=== PATIENT | female | born 1965 | race Caucasian/White ===

== ENCOUNTER → 2016-04-16 | Outpatient (CLI) | payer MEDICARE, OTHER ==
[~2016-04-16] MED LIST: ACIPHEX20 MG; ADIPEX-P37.5 M1 PO; ALPRAZOLAM PO; ALTACE PO; AMLODIPINE BESY10 MG PO; AMPHETAMINE SAL20 M1 PO; ASPIRIN EC81 M1 PO; ASPIRIN81 M2 PO; ASPIRIN81 MG PO; AVANDAMET1 TAB; BACTRIM DS TABL1 TA2 PO; BENADRYL25 M1 PO; BRILINTA90 MG PO; BYETTA10 MCG/0.0 INJ; CARISOPRODL-AS1 EACH PO; CARVEDILOL6.25 MG PO; CLOPIDOGREL BIS75 MG PO; CLOPIDOGREL75 MG PO; COREG6.25 MG PO; DIOVAN PO; DIOVAN320 MG PO; DOXYCYCLINE MO100 MG PO; DUONEB 2.5-0.5 M3 ML NEB; EPINEPHRIN0.15 MG/0. SUBQ; FENOFIBRATE145 M1 PO; GLIPIZIDE10 MG PO; GLUCOPHAGE XR500 MG PO; GLUCOPHAGE500 M1 PO; HYDROCHLOROTHIA25 MG; HYDROCODON-ACE1 EAC5 PO; K-DUR20 ME1; KLONOPIN; KLONOPIN1 M1 PO; KLONOPIN1 MG PO; LEVOTHYROXINE100 MC1 PO; LIPITOR40 MG PO; LISINOPRIL5 MG PO; LORTAB 7.5-5001 TAB PO; LORTAB 7.51 TAB 7.5/ PO; METOPROLOL SUCC25 MG PO; NORCO 10-325 TA1 TAB PO; NORCO1 TAB 10/3 PO; NORVASC10 MG PO; ONDANSETRO8 MG/UDTAB PO; ONGLYZA5 MG PO; PEPCID PO; PHENERGAN PO; PILOCARPINE HCL5 MG PO; PREDNISONE10 MG PO; PREVACID PO; PRILOSEC PO; SLEEPING MED; SOMA PO; SYNTHROID75 MCG PO; TYLENOL #3 PO; VOLTAREN75 MG PO; ZETIA PO; [UNRECOGNIZED DRUG - REMARK]
--- NOTE | ~2016-04-16 | EKG ---
PATIENT: VIKRAM YANCEY UNIT #: [id number] Ventricular Rate: 63 BPM Atrial Rate: 63 BPM P-R Interval: 150 ms QRS Duration: 70 ms Q-T Interval: 404 ms QTC Calculation(Bezet): 413 ms P [place]: -5 degrees Calculated R [place]: 8 degrees Calculated T [place]: 17 degrees Diagnosis Line: Normal sinus rhythm Diagnosis Line: Low voltage QRS Diagnosis Line: Borderline ECG Diagnosis Line: When compared with ECG of 12-JUN-2015 17:03, Diagnosis Line: Questionable change in QRS axis Diagnosis Line: T wave inversion now evident in Inferior leads Diagnosis Line: Confirmed by JILL ORR MD ([id number]) on 04/18/2016 Diagnosis Line: 5:50:00 PM INTERPRETING MD: DOMINGA LIU
[2016-04-16 07:48] LABS: HEMATOCRIT 42.9 % (35.0-45.0); HEMOGLOBIN 14.4 gm/dL (12.0-16.0); MEAN CELL VOLUME 88.8 FL (83-96); MEAN CORPUSCULAR HEMOGLOBIN 29.9 PG (28-34); MEAN CORPUSCULAR HGB CONC 33.7 g/dL (30-36); MEAN PLATELET VOLUME 8.4 FL (6.5-11.5); RED BLOOD COUNT 4.82 X10e (3.90-5.30); RED CELL DISTRIBUTION WIDTH 14.6 % (11.0-15.5); WHITE BLOOD COUNT 7.7 X10e3 (4.0-10.5)
[2016-04-16 08:05] LABS: INR 0.9; PARTIAL THROMBOPLASTIN TIME 24.2 SECONDS (23.5-31.3); PROTHROMBIN TIME (PATIENT) 9.8 SECONDS (9.6-11.5)
[2016-04-16 08:13] LABS: BLOOD UREA NITROGEN 18 mg/dL (9-23); CALCIUM SERUM 9.2 mg/dL (8.4-10.2); CARBON DIOXIDE 26 mmol/L (22-31); CHLORIDE 110 mmol/L (100-111); CREATININE SERUM 0.9 mg/dL (0.6-1.4); GLOM FILT RATE Estimated ABOVE60 mL/min (>60); GLUCOSE FASTING 118 mg/dL (70-110); POTASSIUM 4.3 mmol/L (3.5-5.1); SODIUM 142 mmol/L (135-145)
== END | disposition home or self-care (01) ==
LOC: CCVL 07:27
PROVIDERS: Internal Medicine Cardiovascular Disease
PROC: 4A023N7 Measurement of Cardiac Sampling and Pressure, Left Heart, Percutaneous Approach (ICD-10-PCS; principal; 2016-04-16)
PROC: B211YZZ Fluoroscopy of Multiple Coronary Arteries using Other Contrast (ICD-10-PCS; 2016-04-16)
PROC: B215YZZ Fluoroscopy of Left Heart using Other Contrast (ICD-10-PCS; 2016-04-16)
DX: R07.9 Chest pain, unspecified (principal); J44.9 Chronic obstructive pulmonary disease, unspecified; R06.02 Shortness of breath; F41.9 Anxiety disorder, unspecified; Z95.5 Presence of coronary angioplasty implant and graft; I25.2 Old myocardial infarction; F17.200 Nicotine dependence, unspecified, uncomplicated; E03.9 Hypothyroidism, unspecified; E11.9 Type 2 diabetes mellitus without complications; M06.9 Rheumatoid arthritis, unspecified; Z86.11 Personal history of tuberculosis; K21.9 Gastro-esophageal reflux disease without esophagitis; M19.90 Unspecified osteoarthritis, unspecified site; R13.10 Dysphagia, unspecified; G47.33 Obstructive sleep apnea (adult) (pediatric); Z90.710 Acquired absence of both cervix and uterus; Z90.49 Acquired absence of other specified parts of digestive tract; Z98.890 Other specified postprocedural states; Z82.49 Family history of ischemic heart disease and other diseases of the circulatory system; Z83.3 Family history of diabetes mellitus; Z82.61 Family history of arthritis; Z83.42 Family history of familial hypercholesterolemia; Z82.62 Family history of osteoporosis; Z83.71 Family history of colonic polyps; Z81.8 Family history of other mental and behavioral disorders; Z81.1 Family history of alcohol abuse and dependence; Z88.6 Allergy status to analgesic agent; Z88.5 Allergy status to narcotic agent; Z88.1 Allergy status to other antibiotic agents; Z88.8 Allergy status to other drugs, medicaments and biological substances
CPT/HCPCS: 36415; 80048; 85027; 85610; 85730; 93005; C1769; C1887; C1894; J1644; J2250; J2550; J3010